=== PATIENT | female | born 1970 | race Caucasian/White ===

== ENCOUNTER 2025-09-18 14:42 | Emergency (ER) | payer MEDICAID, SELFPAY ==
[2025-09-18 14:45] VITALS: PULSE 105; RESP 18; TEMP 36.6; O2SAT 100; BMI 16.7
[2025-09-18 15:18] VITALS: BP 116/62; PULSE 105; RESP 18; TEMP 36.6; O2SAT 100
--- NOTE | 2025-09-18 16:54 | EX.ED.DYSGE1 ---
HPI History of Present Illness Chief Complaint: Ear Problem Narrative Narrative: Patient is a 55-year-old female presenting to the emergency department for decreased hearing from her left ear as well as discomfort. Patient arrives with family member. Patient states she just started having symptoms yesterday. Denies any fever, chills, sore throat, cough, congestion. Feels well otherwise. Denies any known foreign bodies in the ear. Denies any headache, dizziness or lightheadedness. PFSH PFSH Home Medications ?Medication ?Instructions ?Recorded ?Last Taken ?Type albuterol sulfate 90 mcg/actuation 2 puff inhalation Q4H PRN PRN 09/18/25 Unknown History aerosol inhaler shortness of breath or wheezing cholecalciferol (vitamin D3) 125 125 mcg PO DAILY 09/18/25 Unknown History mcg (5,000 unit) capsule deutetrabenazine 6 mg 6 mg PO DAILY 09/18/25 Unknown History tablet,extended release 24 hr (Austedo XR) gabapentin 300 mg capsule 600 mg PO TID 09/18/25 Unknown History Allergy/AdvReac Type Severity Reaction Status Date / Time No Known Allergies Allergy Verified 09/18/25 14:44 Social History Smoking Status: Never smoker ROS ROS ED ROS Narrative See HPI EXAM Physical Exam Narrative Exam Narrative: Vital signs: Reviewed General: Alert and oriented. No acute distress HEENT: Head is normocephalic and atraumatic, sinuses nontender, pupils equal round and reactive. Nares are patent. Oropharynx and throat exams normal. Left TM unable to be visualized due to cerumen. No erythema of the external ear or the ear canal. No tenderness, swelling or erythema of the mastoid. Neck: Supple without lymphadenopathy nontender Cardiovascular: Regular rate and rhythm, no murmurs. No rubs or gallops. Normal S1 and S2 Respiratory: Clear to auscultation bilaterally. No wheezes, rales, rhonchi Abdominal: Soft and nontender. Normal bowel sounds. No guarding or rebound. Nonsurgical abdomen Extremities: No tenderness. No bruising. Normal range of motion. Normal sensation. Skin: No rash or redness. The rest of the physical exam is unremarkable Const Vital Signs: 09/18/25 14:45 11/01/25 15:18 Temperature 97.8 F 97.8 F Temperature Source Temporal Pulse Rate 105 H 105 H Respiratory Rate 18 18 Blood Pressure 116/62 Blood Pressure Mean 80 Pulse Ox 100 100 Oxygen Delivery Method Room Air MDM MDM MDM Narrative Medical decision making narrative: Patient is a 55-year-old female presenting to the emergency department for decreased hearing out of her left ear as well as some discomfort. Patient was seen and examined. Vitals are stable. Patient resting in bed comfortably no acute distress. With evidence of cerumen impaction on the left I think this is likely what is causing her decreased hearing and discomfort. Nursing staff irrigated the ear canal with expulsion of cerumen. Patient had a scant amount of bleeding in the ear canal afterwards. Repeat physical exam with improved visualization of the TM. There is no erythema, bulging or evidence of perforation of the TM. Patient states her symptoms have not improved. Patient discharged from the Emergency Department. I do not feel that the patient's evaluation reveals any acute reason for admission at this time. I instructed them to either follow-up with their primary care physician or promptly return to the Emergency Department for reevaluation should symptoms worsen or new symptoms develop. I explained what symptoms would indicate the need to return to the emergency department. Shared decision making was used. The patient voiced understanding of the treatment plan and is agreeable with it. Clinical impression Cerumen impaction History & Record Review Discussion w/independent historian: Patient and Family Discharge Plan Triage Chief Complaint: Ear Problem ED Provider: Joyce Galvan Dx/Rx/DC Orders Clinical Impression: Cerumen impaction Instructions: ED Cerumen Impaction Treated Prescriptions: No Action albuterol sulfate 90 mcg/actuation HFA aerosol inhaler 2 puff INHALATION Q4H PRN PRN (Reason: shortness of breath or wheezing) cholecalciferol (vitamin D3) 125 mcg (5,000 unit) capsule 125 mcg PO DAILY Austedo XR 6 mg tablet extended release 24 hr 6 mg PO DAILY gabapentin 300 mg capsule 600 mg PO TID Primary Care Provider: TITA BOSCH Referrals: Calvin Ortega MD [Med Staff - Active Staff, Family Practice] - As soon as possible TITA BOSCH CRNP [Primary Care Provider, Neurology] Activity Restrictions/Additional Instructions: Your evaluation in the Emergency Department did not reveal any acute reason for admission. However, I want to emphasize that you may be early in the course of a disease process or illness even if it is not present. For this reason you should follow-up within 24 hours for reevaluation with either your primary care physician or if necessary back here in the Emergency Department. You should return to the Emergency Department immediately if your symptoms worsen or new symptoms develop. Print Language: Macedonian Disposition Disposition: Home, Self Care Discharge Date/Time: 09/18/25 15:45
== END 2025-09-18 15:45 | disposition home or self-care (01) ==
PROVIDERS: Emergency Provider Student in an Organized Health Care Education/Training Program; PCP Nurse Practitioner; Visit Provider Student in an Organized Health Care Education/Training Program
DX: H61.22 Impacted cerumen, left ear (principal)
CPT/HCPCS: 69209; 99283